=== PATIENT | male | born 1990 | race Caucasian/White ===

== ENCOUNTER 2019-10-19 19:39 | Emergency (ER) | payer SELFPAY ==
--- NOTE | 2019-10-19 21:07 | EDM.PDOC ---
ED HPI GENERAL MEDICAL PROBLEM - General Chief Complaint: Fever Stated Complaint: FEVER/CHILLS, STIFF NECK,BODY ACHES Time Seen by Provider: 10/19/19 20:31 Source of Information: Reports: Patient History Limitations: Reports: No Limitations - History of Present Illness INITIAL COMMENTS - FREE TEXT/NARRATIVE: chief complaint: sore throat and neck This is a 29 year old male who is generally healthy, reports for the past 4 days has been sick with sore throat, fever, body ache. reports and children are not sick. Immunizations are up to date, last flu shot 4 years ago, didn't get one this year Onset: Gradual Onset Date: 10/16/19 Duration: Day(s):, Getting Worse Location: Reports: Neck, Generalized Quality: Reports: Ache, Burning, Stabbing Improves with: Reports: None Worsens with: Reports: None Associated Symptoms: Reports: Fever/Chills, Other (bodyaches) Treatments LAUNDRY AID: Reports: Acetaminophen, NSAIDS throat Pain Score (Numeric/FACES): 4 - Related Data Allergies Allergy/AdvReac Type Severity Reaction Status Date / Time No Known Allergies Allergy Verified 10/19/19 20:22 Home Meds: Home Meds NK [No Known Home Meds] 08/20/18 [History] Past Medical History - Past Health History Medical/Surgical History: Denies Medical/Surgical History Social & Family History - Family History Family Medical History: Noncontributory - Caffeine Use Caffeine Use: Reports: Coffee - Recreational Drug Use Recreational Drug Use: No - Living Situation & Occupation Living situation: Reports: Occupation: Employed (lives with and Children.) ED ROS ENT - Review of Systems Review Of Systems: See Below Constitutional: Reports: Fever, Chills, Decreased Appetite HEENT: Reports: Throat Pain, Throat Swelling Respiratory: Reports: No Symptoms Cardiovascular: Reports: No Symptoms Endocrine: Reports: No Symptoms GI/Abdominal: Reports: No Symptoms Musculoskeletal: Reports: Neck Pain, Other (muscle aches and pains for the past 4 days) Skin: Reports: No Symptoms Neurological: Reports: No Symptoms Psychiatric: Reports: No Symptoms Hematologic/Lymphatic: Reports: No Symptoms Immunologic: Reports: No Symptoms ED EXAM, ENT - Physical Exam Exam: See Below Exam Limited By: No Limitations General Appearance: Alert, WD/WN, Mild Distress Eye Exam: Bilateral Eye: Normal Inspection Ears: Normal External Exam, Normal Canal, Hearing Grossly Normal, Normal TMs Nose: Clear Rhinorrhea, Injected Turbinates Mouth/Throat: Normal Gums, Normal Lips, Normal Teeth, Tonsillar Erythema, Tonsillar Exudates, Tonsillar Swelling Head: Atraumatic, Normocephalic Neck: Normal Inspection, Supple, Full Range of Motion, Tender Lateral Respiratory/Chest: No Respiratory Distress, Lungs Clear, Normal Breath Sounds, No Accessory Muscle Use, Chest Non-Tender Cardiovascular: Normal Peripheral Pulses, Regular Rate, Rhythm, No Edema, No Murmur GI/Abdominal: Normal Bowel Sounds, Soft, Non-Tender Back: Normal Inspection, Full Range of Motion Extremities: Normal Inspection, Normal Range of Motion, No Pedal Edema Neurological: Alert, Oriented, CN II-XII Intact, Normal Cognition, Normal Gait, Normal Reflexes, No Motor/Sensory Deficits Psychiatric: Normal Affect, Normal Mood Skin: Warm, Dry, Intact, Normal Color, No Rash Lymphatic: No Adenopathy Course - Vital Signs Last Recorded V/S: Last Vital Signs Temp 38.1 C 10/19/19 20:32 Pulse 80 10/19/19 21:18 Resp 14 10/19/19 21:18 BP 120/80 10/19/19 21:18 Pulse Ox 98 10/19/19 21:18 - Orders/Labs/Meds Orders: Active Orders 24 hr Category Date Time Status CULTURE STREP A CONFIRMATION [] Stat Lab 10/19/19 20:39 Results STREP SCRN A RAPID W CULT CONF [] Stat Lab 10/19/19 20:39 Results Departure - Departure Time of Disposition: 21:00 Disposition: Home, Self-Care 01 Condition: Good Clinical Impression: Acute tonsillitis Qualifiers: Pharyngitis/tonsillitis etiology: unspecified etiology Qualified Code(s): J03.90 - Acute tonsillitis, unspecified - Discharge Information *PRESCRIPTION DRUG MONITORING PROGRAM REVIEWED*: Not Applicable *COPY OF PRESCRIPTION DRUG MONITORING REPORT IN PATIENT PAULA: Not Applicable Instructions: Tonsillitis, [id number] Referrals: PCP,None [Primary Care Provider] - Forms: ED Department Discharge, ED Return to Work/School Form Care Plan Goals: Acute Tonsillitis and cough -Zithromax 250mg; take 2 tabs today then 1 tab daily for 4 days -Robitussin AC; take 10 ml every 4 to 6 hours as needed for painful cough -rest -push fluids - no work until fever free for 24 hours, work slip given Return to ER if not improved or has worsen pain, fever, chills, nausea, vomiting , or has any concerns. Sepsis Event Note - Evaluation Sepsis Screening Result: No Definite Risk - Focused Exam Vital Signs: Vital Signs Temp Pulse Resp BP Pulse Ox 10/19/19 21:18 80 14 120/80 98 10/19/19 20:32 38.1 C 88 14 142/82 H 96 10/19/19 20:05 38.1 C 93 16 154/87 H 96 Date Exam was Performed: 10/19/19 Time Exam was Performed: 22:47 - Problem List & Annotations (1) Acute tonsillitis SNOMED Code(s): 57523309 Code(s): J03.90 - ACUTE TONSILLITIS, UNSPECIFIED Status: Acute Qualifiers: Pharyngitis/tonsillitis etiology: unspecified etiology Qualified Code(s): J03.90 - Acute tonsillitis, unspecified - Problem List Review Problem List Initiated/Reviewed/Updated: Yes - My Orders Last 24 Hours: My Active Orders 10/19/19 20:39 CULTURE STREP A CONFIRMATION [RM] Stat STREP SCRN A RAPID W CULT CONF [] Stat - Assessment/Plan Last 24 Hours: My Active Orders 10/19/19 20:39 CULTURE STREP A CONFIRMATION [RM] Stat STREP SCRN A RAPID W CULT CONF [] Stat Plan: Acute Tonsillitis and cough -Zithromax 250mg; take 2 tabs today then 1 tab daily for 4 days -Robitussin AC; take 10 ml every 4 to 6 hours as needed for painful cough -rest -push fluids - no work until fever free for 24 hours, work slip given Return to ER if not improved or has worsen pain, fever, chills, nausea, vomiting , or has any concerns.
== END 2019-10-19 21:21 | disposition home or self-care (01) ==
LOC: JP.ED 19:39
DX: J03.90 Acute tonsillitis, unspecified (principal)
CPT/HCPCS: 87081; 87804; 87804-59; 87880-QW; 99283

== ENCOUNTER 2021-06-05 20:54 | Emergency (ER) | payer MEDICAID ==
--- NOTE | 2021-06-05 22:11 | EDM.PDOC ---
ED HPI GENERAL MEDICAL PROBLEM - General Chief Complaint: Fever Stated Complaint: FEVER,BODY ACHES Time Seen by Provider: 06/05/21 20:59 Source of Information: Reports: Patient, RN History Limitations: Reports: No Limitations - History of Present Illness INITIAL COMMENTS - FREE TEXT/NARRATIVE: chief complaint: fever, chills, neck pain- similar to the ear infection 3 weeks ago. This is a 31 year old Male presents to the ER for evaluation of symptoms. He reports headache, neck pain, intermittent ear pain. This is similar to ear infection about 3 weeks ago, this was treated with antibiotics (unknown) then ear drops. Lives with and 3 Children all well Not vaccinated for Covid-19, denies any exposure to Covid-19 Onset: Today Duration: Hour(s):, Getting Worse Location: Reports: Generalized Quality: Reports: Same as Previous Episode (ear infection 3 weeks ago) Severity: Mild Improves with: Reports: None Worsens with: Reports: None Associated Symptoms: Reports: Fever/Chills, Headaches, Other (intermittent ear pain) body aches Pain Score (Numeric/FACES): 6 - Related Data Allergies Allergy/AdvReac Type Severity Reaction Status Date / Time No Known Allergies Allergy Verified 06/05/21 21:39 Home Meds: Home Meds NK [No Known Home Meds] 08/20/18 [History] Past Medical History - Past Health History Medical/Surgical History: Denies Medical/Surgical History HEENT History: Reports: Impaired Vision, Other (See Below) Other HEENT History: contacts Musculoskeletal History: Reports: Fracture, Other (See Below) Other Musculoskeletal History: right arm fx - Infectious Disease History Infectious Disease History: Reports: Chicken Pox Social & Family History - Family History Family Medical History: No Pertinent Family History - Tobacco Use Tobacco Use Status *Q: Never Tobacco User - Caffeine Use Caffeine Use: Reports: Coffee - Recreational Drug Use Recreational Drug Use: No - Living Situation & Occupation Living situation: Reports: (lives with and 3 Children in [place], [place].) Occupation: Employed (lives with and Children.) ED ROS ENT - Review of Systems Review Of Systems: See Below Constitutional: Reports: Fever, Chills, Malaise HEENT: Reports: Ear Pain, Throat Pain, Other (swollen glands in neck) Respiratory: Reports: No Symptoms Cardiovascular: Reports: No Symptoms Endocrine: Reports: No Symptoms GI/Abdominal: Reports: No Symptoms : Reports: No Symptoms Musculoskeletal: Reports: Neck Pain Skin: Reports: No Symptoms Neurological: Reports: No Symptoms Psychiatric: Reports: No Symptoms Hematologic/Lymphatic: Reports: No Symptoms Immunologic: Reports: No Symptoms ED EXAM, ENT - Physical Exam Exam: See Below Exam Limited By: No Limitations General Appearance: Alert, WD/WN, No Apparent Distress, Other (neat and well groomed, pleasant and polite) Eye Exam: Bilateral Eye: Normal Inspection, PERRL Ears: Normal External Exam, Normal Canal, Hearing Grossly Normal, TM Bulging, TM Dullness, TM Erythema Nose: Normal Inspection, Normal Mucousa Mouth/Throat: Normal Gums, Normal Lips, Normal Teeth, Tonsillar Erythema, Tonsillar Exudates (white discharge noted to tonsils.) Head: Atraumatic, Normocephalic Neck: Normal Inspection, Supple, Lymphadenopathy (R), Lymphadenopathy (L) Respiratory/Chest: No Respiratory Distress, Lungs Clear, Normal Breath Sounds, No Accessory Muscle Use, Chest Non-Tender Cardiovascular: Normal Peripheral Pulses, Regular Rate, Rhythm, No Edema, No Gallop, No JVD, No Murmur, No Rub GI/Abdominal: Normal Bowel Sounds, Soft, Non-Tender, No Organomegaly, No Distention, No Abnormal Bruit, No Mass (Male) Exam: Deferred Rectal (Males) Exam: Deferred Back: Normal Inspection, Full Range of Motion Extremities: Normal Inspection, Normal Range of Motion, Non-Tender, No Pedal Edema, Normal Capillary Refill Neurological: Alert, Oriented, CN II-XII Intact, Normal Cognition, Normal Gait, Normal Reflexes, No Motor/Sensory Deficits Psychiatric: Normal Affect, Normal Mood Skin: Warm, Dry, Intact, Normal Color, No Rash Lymphatic: Adenopathy (cervical) Course - Vital Signs Last Recorded V/S: Last Vital Signs Temp 97.8 F 06/05/21 21:40 Pulse 94 06/05/21 21:40 Resp 16 06/05/21 21:40 BP 122/89 06/05/21 21:40 Pulse Ox 95 06/05/21 21:40 - Orders/Labs/Meds Orders: Active Orders 24 hr Category Date Time Status CULTURE STREP A CONFIRMATION [RM] Stat Lab 06/05/21 21:39 Results STREP SCRN A RAPID W CULT CONF [RM] Stat Lab 06/05/21 21:39 Results - Re-Assessments/Exams Free Text/Narrative Re-Assessment/Exam: 06/05/21 22:13 rapid strep negative- throat culture pending will treat for recurrent ear infection Mr. Borges agrees with plan of care. Departure - Departure Time of Disposition: 22:14 Disposition: Home, Self-Care 01 Condition: Good Clinical Impression: Otitis media Acute tonsillitis Qualifiers: Pharyngitis/tonsillitis etiology: unspecified etiology Qualified Code(s): J03.90 - Acute tonsillitis, unspecified - Discharge Information *PRESCRIPTION DRUG MONITORING PROGRAM REVIEWED*: Not Applicable *COPY OF PRESCRIPTION DRUG MONITORING REPORT IN PATIENT PAULA: Not Applicable Instructions: Tonsillitis, [id number], Otitis Media, Adult, [id number] Referrals: PCP,None [Primary Care Provider] - Care Plan Goals: Ear Infection with Tonsillitis -rapid strep test is negative- throat culture is pending -start today Zithromax 250mg tablet take two tablets tonight, then one daily til gone -Tylenol #3 (pain medication) take one tablet at bedtime and every 4 to 6 hours as need for pain -Take over the counter Motrin and Tylenol as needed for minor pain -follow with [facility] in 10 days to recheck ears Return to ER for any increased pain,fever, chills, nausea, vomiting, rash or not improved Sepsis Event Note (ED) - Evaluation Sepsis Screening Result: No Definite Risk - Focused Exam Vital Signs: Vital Signs Temp Pulse Resp BP Pulse Ox 06/05/21 21:40 97.8 F 94 16 122/89 95 06/05/21 21:12 97.8 F 94 16 122/89 95 - Problem List & Annotations (1) Otitis media SNOMED Code(s): 97999880 Code(s): H66.90 - OTITIS MEDIA, UNSPECIFIED, UNSPECIFIED EAR Status: Acute Priority: High Current Visit: Yes Qualifiers: Otitis media type: suppurative Chronicity: acute Laterality: bilateral Recurrence: recurrent Spontaneous tympanic membrane rupture: without spontaneous rupture Qualified Code(s): H66.006 - Acute suppurative otitis media without spontaneous rupture of ear drum, recurrent, bilateral (2) Acute tonsillitis SNOMED Code(s): 41583496 Code(s): J03.90 - ACUTE TONSILLITIS, UNSPECIFIED Status: Acute Priority: High Current Visit: Yes Qualifiers: Pharyngitis/tonsillitis etiology: unspecified etiology Qualified Code(s): J03.90 - Acute tonsillitis, unspecified - Problem List Review Problem List Initiated/Reviewed/Updated: Yes - My Orders Last 24 Hours: My Active Orders 06/05/21 21:39 CULTURE STREP A CONFIRMATION [RM] Stat STREP SCRN A RAPID W CULT CONF [RM] Stat - Assessment/Plan Last 24 Hours: My Active Orders 06/05/21 21:39 CULTURE STREP A CONFIRMATION [RM] Stat STREP SCRN A RAPID W CULT CONF [RM] Stat Plan: Ear Infection with Tonsillitis -rapid strep test is negative- throat culture is pending -start today Zithromax 250mg tablet take two tablets tonight, then one daily til gone -Tylenol #3 (pain medication) take one tablet at bedtime and every 4 to 6 hours as need for pain -Take over the counter Motrin and Tylenol as needed for minor pain -follow with [facility] in 10 days to recheck ears Return to ER for any increased pain,fever, chills, nausea, vomiting, rash or not improved
== END 2021-06-05 22:27 | disposition home or self-care (01) ==
LOC: JP.ED 20:54
DX: J03.90 Acute tonsillitis, unspecified (principal); H66.006 Acute suppurative otitis media without spontaneous rupture of ear drum, recurrent, bilateral
CPT/HCPCS: 87081; 87880-QW; 99283

== ENCOUNTER 2021-07-04 20:05 | Emergency (ER) | payer MEDICAID ==
[2021-07-04] MEDS ORDERED: Acetaminophen/oxyCODONE 325-5 MG Tab PO STA (20:21)
[2021-07-04] MEDS ORDERED: Ibuprofen 600 MG Tab PO ONE (20:22)
--- NOTE | 2021-07-04 20:26 | EDM.PDOC ---
ED HPI GENERAL MEDICAL PROBLEM - General Chief Complaint: General Stated Complaint: FELL OFF JONES/STUNG Time Seen by Provider: 07/04/21 20:15 Source of Information: Reports: Patient, Old Records, RN History Limitations: Reports: No Limitations - History of Present Illness INITIAL COMMENTS - FREE TEXT/NARRATIVE: 31 yo male fell climbing a fence to escape some bees after being stung once in the L mandaen. Now has L lateral chest wall pain from the fall. Hurts to breath. No tx prior to arrival. Onset: Today, Sudden Onset Date: 07/04/21 Duration: Minutes:, Constant Location: Reports: Chest Quality: Reports: Sharp, Stabbing Severity: Moderate Improves with: Reports: Rest Worsens with: Reports: Movement Context: Reports: Trauma Associated Symptoms: Reports: No Other Symptoms Treatments SUPPORT ASSOCIATE: Reports: Other (see below) (none) Left Upper Chest Pain Score (Numeric/FACES): 8 - Related Data Allergies Allergy/AdvReac Type Severity Reaction Status Date / Time No Known Allergies Allergy Verified 06/05/21 21:39 Home Meds: Home Meds NK [No Known Home Meds] 08/20/18 [History] Past Medical History - Past Health History Medical/Surgical History: Denies Medical/Surgical History HEENT History: Reports: Impaired Vision, Other (See Below) Other HEENT History: contacts Musculoskeletal History: Reports: Fracture, Other (See Below) Other Musculoskeletal History: right arm fx - Infectious Disease History Infectious Disease History: Reports: Chicken Pox Social & Family History - Family History Family Medical History: No Pertinent Family History - Tobacco Use Tobacco Use Status *Q: Never Tobacco User - Caffeine Use Caffeine Use: Reports: None - Recreational Drug Use Recreational Drug Use: No - Living Situation & Occupation Living situation: Reports: (lives with and 3 Children in [place], [place].) Occupation: Employed (lives with and Children.) ED ROS GENERAL - Review of Systems Review Of Systems: See Below Constitutional: Reports: No Symptoms HEENT: Reports: No Symptoms Respiratory: Reports: Pleuritic Chest Pain. Denies: Shortness of Breath Cardiovascular: Reports: No Symptoms GI/Abdominal: Reports: No Symptoms Skin: Reports: No Symptoms Neurological: Reports: No Symptoms ED EXAM, GENERAL - Physical Exam Exam: See Below Exam Limited By: No Limitations General Appearance: Alert, WD/WN, No Apparent Distress Eye Exam: Bilateral Eye: Normal Inspection Ears: Normal External Exam, Normal Canal, Hearing Grossly Normal Ear Exam: Bilateral Ear: Auricle Normal, Canal Normal Nose: Normal Inspection, No Blood Throat/Mouth: Normal Inspection, Normal Lips, Normal Oropharynx, Normal Voice, No Airway Compromise Head: Atraumatic, Normocephalic Neck: Normal Inspection Respiratory/Chest: No Respiratory Distress, Lungs Clear, Normal Breath Sounds, No Accessory Muscle Use. No: Chest Non-Tender (rib pain L lateral chest) Cardiovascular: Regular Rate, Rhythm, No Edema Extremities: Normal Inspection Neurological: Alert, Oriented, CN II-XII Intact, Normal Cognition, No Motor/Sensory Deficits Psychiatric: Normal Affect, Normal Mood Skin Exam: Warm, Dry, Intact, Normal Color, No Rash Course - Vital Signs Last Recorded V/S: Last Vital Signs Temp 36.4 C 07/04/21 20:18 Pulse 81 07/04/21 20:18 Resp 16 07/04/21 20:18 BP 134/85 07/04/21 20:18 Pulse Ox 96 07/04/21 20:18 - Orders/Labs/Meds Orders: Active Orders 24 hr Category Date Time Status Ribs 3V wo Chest Lt [CR] Stat Exams 07/04/21 20:22 Ordered UA W/MICROSCOPIC [URIN] Stat Lab 07/04/21 20:24 Ordered Meds: Medications Discontinued Medications Generic Name Dose Route Start Last Admin Trade Name Morgan PRN Reason Stop Dose Admin Ibuprofen 600 mg 07/04/21 20:22 07/04/21 20:26 Ibuprofen 600 Mg Tab PO 07/04/21 20:23 600 mg ONETIME ONE Administration Oxycodone/Acetaminophen 1 tab 07/04/21 20:21 07/04/21 20:26 Acetaminophen/Oxycodone 325-5 Mg Tab PO 07/04/21 20:22 1 tab ONETIME STA Administration - Radiology Interpretation Free Text/Narrative:: Rib x-rays-neg Departure - Departure Time of Disposition: 20:50 Disposition: Home, Self-Care 01 Condition: Fair Clinical Impression: Rib pain on left side - Discharge Information *PRESCRIPTION DRUG MONITORING PROGRAM REVIEWED*: No *COPY OF PRESCRIPTION DRUG MONITORING REPORT IN PATIENT PAULA: No Instructions: Chest Wall Pain, [id number] Referrals: PCP,None [Primary Care Provider] - Forms: ED Department Discharge Additional Instructions: Take ibuprofen 600 mg every 6 hrs with food for pain relief. Add either acetaminophen 1000 mg every 6 hrs OR [place] for added pain relief. Recheck with your doctor within the week, call for an appt. Sepsis Event Note (ED) - Evaluation Sepsis Screening Result: No Definite Risk - Focused Exam Vital Signs: Vital Signs Temp Pulse Resp BP Pulse Ox 07/04/21 20:18 36.4 C 81 16 134/85 96 - My Orders Last 24 Hours: My Active Orders 07/04/21 20:22 Ribs 3V wo Chest Lt [CR] Stat 07/04/21 20:24 UA W/MICROSCOPIC [URIN] Stat - Assessment/Plan Last 24 Hours: My Active Orders 07/04/21 20:22 Ribs 3V wo Chest Lt [CR] Stat 07/04/21 20:24 UA W/MICROSCOPIC [URIN] Stat
--- NOTE | 2021-07-09 09:15 | CR ---
Ribs 3V wo Chest Lt CLINICAL HISTORY: Fall, left chest pain FINDINGS: There is no acute fracture within the ribs. No destructive changes are seen. There is no focal pleural thickening or obvious effusion. IMPRESSION: Negative left ribs.
== END 2021-07-04 21:02 | disposition home or self-care (01) ==
LOC: JP.ED 20:05
DX: R07.81 Pleurodynia (principal)
CPT/HCPCS: 71101; 99283; A9270

== ENCOUNTER 2021-07-12 19:37 | Emergency (ER) | payer MEDICAID ==
--- NOTE | 2021-07-12 20:24 | EDM.PDOC ---
ED HPI GENERAL MEDICAL PROBLEM - General Chief Complaint: Back Pain or Injury Stated Complaint: FELL A WEEK AGO,LT SIDE BODY PAIN Time Seen by Provider: 07/12/21 20:24 Source of Information: Reports: Patient, RN Notes Reviewed History Limitations: Reports: No Limitations - History of Present Illness INITIAL COMMENTS - FREE TEXT/NARRATIVE: Pain that has worsened since yesterday to the left sternum, chest, left anterior and posterior ribs. He reports he fell forward over a gait onto the ground while being pulled by a horse 7 days ago. He denies LOC. He states his pain became much worse up to 9/10 today to the left front and back of his chest. He states he cannot get comfortable sitting, laying or walking. He states he has been taking ibuprofen 600mg by mouth for his pain. When he takes ibuprofen for pain, the pain goes down to 4/10. He denies SOB, cough, difficulty breathing, fever, chills, nausea, vomiting, change in bowel/bladder, blood in urine, bloody stools or any other concerns. Last PO food and water at 1800 today. He was evaluated after his fall, had x-ray of chest/ribs which was negative for acute findings 07/04/2021. Left Back Pain Score (Numeric/FACES): 7 - Related Data Allergies Allergy/AdvReac Type Severity Reaction Status Date / Time No Known Allergies Allergy Verified 07/12/21 20:12 Home Meds: Home Meds NK [No Known Home Meds] 08/20/18 [History] Past Medical History - Past Health History Medical/Surgical History: Denies Medical/Surgical History HEENT History: Reports: Impaired Vision, Other (See Below) Other HEENT History: contacts Musculoskeletal History: Reports: Fracture, Other (See Below) Other Musculoskeletal History: right arm fx - Infectious Disease History Infectious Disease History: Reports: Chicken Pox Social & Family History - Family History Family Medical History: No Pertinent Family History - Tobacco Use Tobacco Use Status *Q: Former Tobacco User Used Tobacco, but Quit: Yes Month/Year Tobacco Last Used: 10/2020 - Caffeine Use Caffeine Use: Reports: Tea - Recreational Drug Use Recreational Drug Use: No - Living Situation & Occupation Living situation: Reports: (lives with and 3 Children in [place], [place].) Occupation: Employed (lives with and Children.) ED ROS GENERAL - Review of Systems Review Of Systems: See Below Constitutional: Reports: No Symptoms HEENT: Reports: No Symptoms Respiratory: Reports: Other (pain to front and back of left side or chest with rest and activity. ). Denies: Shortness of Breath, Wheezing, Cough, Sputum, Hemoptysis Cardiovascular: Reports: Chest Pain (with deep breathing to left front/back of chest and with movement.). Denies: Blood Pressure Problem, Claudication, Dyspnea on Exertion, Edema, Lightheadedness, Orthopnea, Palpitations, PND, Syncope Endocrine: Reports: No Symptoms GI/Abdominal: Denies: Abdominal Pain, Black Stool, Bloody Stool, Constipation, Diarrhea, Distension, Flatus, Hematemesis, Hematochezia, Melena, Nausea, Stool Incontinence, Vomiting : Reports: No Symptoms Musculoskeletal: Reports: Muscle Pain (left upper back, ), Muscle Stiffness (left upper back). Denies: Neck Pain, Back Pain Skin: Reports: No Symptoms Neurological: Reports: No Symptoms Psychiatric: Reports: No Symptoms Hematologic/Lymphatic: Reports: No Symptoms Immunologic: Reports: No Symptoms ED EXAM, UPPER BACK/NECK PAIN - Physical Exam Exam: See Below Exam Limited By: No Limitations General Appearance: Alert, WD/WN, Mild Distress (Offered pain medication, patient declined any narcotic. Acetaminophen ordered. ) Eye Exam: Bilateral Eye: EOMI, Normal Inspection, PERRL Ears Exam: Normal External Exam, Normal Canal, Hearing Grossly Normal, Normal TMs Nose Exam: Normal Inspection, Normal Mucousa, No Blood Throat/Mouth Exam: Normal Inspection, Normal Lips, Normal Teeth, Normal Gums, Normal Oropharynx, Normal Voice, No Airway Compromise Head Exam: Atraumatic, Normocephalic Neck Exam: Non-Tender, Full Range of Motion, Normal Alignment, Normal Inspection. No: Muscle Spasm, Paraspinous Muscle Tender, Spinous Processes Tender, Stiff Neck Nexus Criteria: No: Posterior, Midline Cervical Tenderness, Evidence of Intoxication, Altered Level of Consciousness, Focal Neurological Deficit, Painful Distraction Injuries Cardiovascular/Respiratory: Regular Rate, Rhythm, No M/R/G, Normal Peripheral Pulses, No Respiratory Distress, Other (pain reproducable with palpation to sternum/xyphoid process, along anterior/lateral lower ribs with palption). No: Tachycardia, Murmur, Rales, Rhonchi, Accessory Muscle uUe, Wheezing GI/Abdominal: Normal Bowel Sounds, Soft, Non-Tender, No Organomegaly, No Distention, No Mass. No: Guarding, Rigid, Rebound, Tender Back Exam: Full Range of Motion, Paraspinal Tenderness (to left thoracic). No: CVA Tenderness (R), CVA Tenderness (L), Vertebral Tenderness Extremities: Normal Inspection, Normal Range of Motion, Non-Tender, No Pedal Edema, Normal Capillary Refill Neurologic: No Motor/Sensory Deficits, Alert, Normal Mood/Affect, Oriented x 3 Psychiatric: Normal Affect, Normal Mood Skin Exam: Normal Color, Warm/Dry Lymphatic: No Adenopathy Course - Vital Signs Last Recorded V/S: Last Vital Signs Temp 36.4 C 07/12/21 20:13 Pulse 72 07/12/21 20:13 Resp 16 07/12/21 20:13 BP 147/79 H 07/12/21 20:13 Pulse Ox 96 07/12/21 20:13 - Orders/Labs/Meds Labs: Laboratory Tests 07/12/21 07/12/21 07/12/21 Range/Units 20:46 20:56 20:56 WBC 7.9 (4.5-11.0) K/uL RBC 4.69 (4.30-5.90) M/uL Hgb 13.3 (12.0-15.0) g/dL Hct 40.1 (40.0-54.0) % MCV 86 (80-98) fL MCH 28 (27-31) pg MCHC 33 (32-36) % Plt Count 259 (150-400) K/uL Neut % (Auto) 54.6 (36-66) % Lymph % (Auto) 31.4 (24-44) % [place] % (Auto) 10.6 H (2-6) % Eos % (Auto) 3.0 (2-4) % Baso % (Auto) 0.4 (0-1) % Sodium 140 (140-148) mmol/L Potassium 3.6 (3.6-5.2) mmol/L Chloride 103 (100-108) mmol/L Carbon Dioxide 29 (21-32) mmol/L Anion Gap 8.1 (5.0-14.0) mmol/L BUN 21 H (7-18) mg/dL Creatinine 1.1 (0.8-1.3) mg/dL Est Cr Clr Drug Dosing 117.27 mL/min Estimated GFR (MDRD) > 60 (>60) Glucose 106 (74-106) mg/dL Calcium 9.2 (8.5-10.1) mg/dL Total Bilirubin 0.3 (0.2-1.0) mg/dL AST 12 L (15-37) U/L ALT 35 (12-78) U/L Alkaline Phosphatase 67 (46-116) U/L Total Protein 7.1 (6.4-8.2) g/dL Albumin 3.8 (3.4-5.0) g/dL Globulin 3.3 (2.3-3.5) g/dL Albumin/Globulin Ratio 1.2 (1.2-2.2) Urine Color Yellow (YELLOW) Urine Appearance Clear (CLEAR) Urine pH 6.0 (5.0-8.0) Ur Specific [place] >= 1.030 (1.008-1.030) Urine Protein Negative (NEGATIVE) mg/dL Urine Glucose (UA) Negative (NEGATIVE) mg/dL Urine Ketones Negative (NEGATIVE) mg/dL Urine Occult Blood Trace-intact H (NEGATIVE) Urine Nitrite Negative (NEGATIVE) Urine Bilirubin Negative (NEGATIVE) Urine Urobilinogen 0.2 (0.2-1.0) EU/dL Ur Leukocyte Esterase Negative (NEGATIVE) Urine RBC 0-5 (0-5) Urine WBC 0-5 (0-5) Ur Epithelial Cells Not seen Amorphous Sediment Not seen Urine Bacteria Not seen Urine Mucus Not seen Patient lab work reviewed, no acute findings. Noted occult blood in urine with RBC 0-5, most likely myoglobin. Patient can recheck UA with primary in 7 to 14 days. Meds: Medications Discontinued Medications Generic Name Dose Route Start Last Admin Trade Name Freq PRN Reason Stop Dose Admin Acetaminophen 1,000 mg 07/12/21 20:46 07/12/21 20:50 Acetaminophen 500 Mg Tab PO 07/12/21 20:47 1,000 mg ONETIME ONE Administration Ketorolac Tromethamine 30 mg 07/12/21 22:42 07/12/21 22:55 Ketorolac 30 Mg/Ml Sdv IM 07/12/21 22:43 30 mg ONETIME ONE Administration - Radiology Interpretation Free Text/Narrative:: CT chest, abdomen, pelvis completed without IV contrast. Imaging shows acute fractures of the left anterior 5th, 6th, 7th ribs. 4mm nodule in the dome of the right middle lobe abutting the minor fissure. If high risk, optional follow up in 12 months. Patient and his notified of CT scan findings, all their questions were answered. Patient educated on signs of worsening, importance of use of IS, deep breathing and coughing. Patient verbalized understanding. - Re-Assessments/Exams Free Text/Narrative Re-Assessment/Exam: Patient provided ketorolac for pain after CT completed. Patient tolerated well. Departure - Departure Time of Disposition: 22:45 Disposition: Home, Self-Care 01 Condition: Good Clinical Impression: Fracture of three ribs on left side - Discharge Information *PRESCRIPTION DRUG MONITORING PROGRAM REVIEWED*: Yes *COPY OF PRESCRIPTION DRUG MONITORING REPORT IN PATIENT PAULA: Not Applicable Instructions: Rib Fracture, [id number] Referrals: Gabriel Medina NP [Primary Care Provider] - Forms: ED Department Discharge Additional Instructions: You have been evaluated and treated for left chest pain. CT of abdomen, chest and pelvis without IV contrast completed. CT showed anterior 5th,6th,7th rib fractures. CT also showed 4mm nodule to the dome of the right middle lobe abutting the minor fissure - have this rechecked with your primary provider in 12 months or when your provider states you should. No other abnormal findings noted. Keep hydrated by drinking plenty of water. Take ibuprofen 800mg (4 pills of the 200mg pills) for pain every 8 hours with food. For uncontrolled pain take hydrocodone 5/325mg one to two pills every 6 hours as needed for pain. instymed for #20 pills. Take docusate sodium one pill once or twice per day to prevent constipation. Avoid alcohol use with hydrocodone pain pills. Do not drive while taking hydrocodone. Take deep breaths, cough and deep breath every hour while awake to help prevent pneumonia. Use IS (incentive spirometer) 2 to 4 times every hour while awake to help prevent pneumonia. Follow up with your primary provider in 7 to 14 days for a recheck of urine and for any needs/concern. Return to the emergency room for any worsening, issues or concerns. Sepsis Event Note (ED) - Evaluation Sepsis Screening Result: No Definite Risk - Focused Exam Vital Signs: Vital Signs Temp Pulse Resp BP Pulse Ox 07/12/21 20:13 36.4 C 72 16 147/79 H 96 09/03/21 20:01 36.4 C 72 16 147/79 H 96 - Assessment/Plan Assessment:: Fracture of three ribs on left side Incidental finding right lung. Occult blood, RBC 0-5 UA, most likely myoglobin. Patient will follow up with primary for recheck, repeat UA. Take ibuprofen, hydrocodone as needed for pain. Deep breath and cough, use of IS to help prevent pneumonia. Return as needed. Plan: You have been evaluated and treated for left chest pain. CT of abdomen, chest and pelvis without IV contrast completed. CT showed anterior 5th,6th,7th rib fractures. CT also showed 4mm nodule to the dome of the right middle lobe abutting the minor fissure - have this rechecked with your primary provider in 12 months or when your provider states you should. No other abnormal findings noted. Keep hydrated by drinking plenty of water. Take ibuprofen 800mg (4 pills of the 200mg pills) for pain every 8 hours with food. For uncontrolled pain take hydrocodone 5/325mg one to two pills every 6 hours as needed for pain. instymed for #20 pills. Take docusate sodium one pill once or twice per day to prevent constipation. Avoid alcohol use with hydrocodone pain pills. Do not drive while taking hydrocodone. Take deep breaths, cough and deep breath every hour while awake to help prevent pneumonia. Use IS (incentive spirometer) 2 to 4 times every hour while awake to help prevent pneumonia. Follow up with your primary provider in 7 to 14 days for a recheck of urine and for any needs/concern. Return to the emergency room for any worsening, issues or concerns.
[2021-07-12] MEDS ORDERED: Acetaminophen 500 MG Tab PO ONE (20:46)
--- NOTE | 2021-07-12 22:08 | CRLCT ---
For Patients: As a result of the Century Cures Act, medical imaging exams and procedure reports are released immediately into your electronic medical record. You may view this report before your referring provider. If you have questions, please contact your health care provider. INDICATION: Left flank pain from fall 7 days ago while climbing over his horse gate and fall TECHNIQUE: CT chest, abdomen, and pelvis without i.v. contrast. Coronal and sagittal reformats were obtained. COMPARISON: None FINDINGS: CHEST: Cardiovascular: The heart has an unremarkable appearance and size. The pulmonary arteries are unremarkable in appearance. No sign of aneurysm seen in the thoracic aorta. The presence of aortic dissection cannot be evaluated without the use of intravenous contrast. Mediastinum: No mass or adenopathy seen. Lung: No pulmonary contusion, laceration or pneumothorax is seen. There is a 4 mm nodule in the dome of the right middle lobe abutting the minor fissure. Pleura and pericardium: No sign of pleural effusion seen. No significant pericardial effusion is present. Chest wall and axilla: No mass or adenopathy seen. Bone: Acute fractures of the left anterior 5th-7th ribs are noted. ABDOMEN/PELVIS: Liver: Unremarkable. Spleen: Unremarkable. Pancreas: Unremarkable. Gallbladder: Unremarkable. Kidney: Unremarkable. No kidney or ureteral stones or obstruction seen. Adrenal: Unremarkable. Bowel: Unremarkable. The appendix is normal in appearance and size. Small fat containing umbilical hernia is noted. Vascular: Unremarkable. Lymph: Mesenteric lymph nodes are present measuring up to 8 mm. Peritoneum: Unremarkable. No pneumoperitoneum is seen. No significant ascites is noted. Pelvis: Unremarkable. Soft tissue: Unremarkable. Bone: Unremarkable for age. No acute osseous injuries seen. IMPRESSIONS: 1. Acute fractures of the left anterior 5th-7th ribs are noted. 2. There is a 4 mm nodule in the dome of the right middle lobe abutting the minor fissure. If the patient has a high risk stratification, optional followup Chest CT in 12 months is advised in accordance with the 2017 Revised Fleischner Society Recommendations. Dictated by Rivera Bowman MD @ 07/12/2021 10:07:03 PM Please note that all CT scans at this facility use dose modulation, iterative reconstruction, and/or weight-based dosing when appropriate to reduce radiation dose to as low as reasonably achievable. Dictated by: Rivera Bowman MD @ 07/12/2021 22:07:06 (Electronically Signed)
[2021-07-12] MEDS ORDERED: Ketorolac 30 MG/ML SDV IM ONE (22:42)
== END 2021-07-12 23:29 | disposition home or self-care (01) ==
LOC: JP.ED 19:37
DX: S22.42XA Multiple fractures of ribs, left side, initial encounter for closed fracture (principal); Z87.891 Personal history of nicotine dependence; W17.89XA Other fall from one level to another, initial encounter
CPT/HCPCS: 36415; 71250; 74176; 80053; 81001; 85025; 96372; 99284; A9270; J1885

== ENCOUNTER 2025-05-21 20:03 | Emergency (ER) | payer MEDICAID, OTHER ==
[2025-05-21 20:39] LABS: BASOPHILS ABSOLUTE AUTO 0.02 K/uL (0.00-0.10); BASOPHILS PERCENT AUTO 0.3 % (0.1-1.3); EOSINOPHILS ABSOLUTE AUTO 0.13 K/uL (0.00-0.40); EOSINOPHILS PERCENT AUTO 2.1 % (0.0-5.4); IMMATURE GRAN ABSOLUTE AUTO 0.01 K/uL (0.00-0.23); IMMATURE GRAN PERCENT AUTO 0.2 % (0.0-0.7); LYMPHOCYTES ABSOLUTE AUTO 1.59 K/uL (0.8-3.3); LYMPHOCYTES PERCENT AUTO 25.9 % (11.4-47.7); MONOCYTES ABSOLUTE AUTO 0.71 K/uL (0.20-0.90); MONOCYTES PERCENT AUTO 11.5 % (3.3-12.6); NEUTROPHILS ABSOLUTE AUTO 3.69 K/uL (1.0-7.6); NEUTROPHILS PERCENT AUTO 60.0 % (40.0-78.1); PLATELET COUNT,PLT 202 K/uL (130-375); RED BLOOD CELL COUNT 4.51 M/uL (4.14-5.76); WHITE BLOOD CELL COUNT,WBC 6.2 K/uL (3.2-11.0)
[2025-05-21 21:02] LABS: A/G RATIO 1.3 (1.2-2.2); ALANINE AMINOTRANSFERASE,ALT 35 U/L (12-78); ASPARTATE AMNIOTRANSFERASE,AST 16 U/L (15-37); BILIRUBIN TOTAL 0.4 mg/dL (0.2-1.0); BLOOD UREA NITROGEN,BUN 18 mg/dL (7-18); CARBON DIOXIDE,CO2 28 mmol/L (21-32); CHLORIDE,CL 102 mmol/L (100-108); CREATININE 1.1 mg/dL (0.8-1.3); EST CRCL DRUG DOSING (CG) 115.88 mL/min; ESTIMATED GFR 89 mL/min (>60); GLUCOSE RANDOM 108 mg/dL (74-106); POTASSIUM,K 3.6 mmol/L (3.6-5.2); PROTEIN TOTAL,TP 6.8 g/dL (6.4-8.2); SODIUM,NA 139 mmol/L (140-148)
[2025-05-21 21:03] LABS: LACTIC ACID 0.8 mmol/L (0.4-2.0)
[2025-05-24 23:27] LABS: ANAPLASMA PHAGOCYTOPHILUM PCR Not Detected; BABESIA MICROTI BY PCR Not Detected; EHRLICHIA CHAFFEENSIS BY PCR Not Detected; EHRLICHIA EWINGII/CANIS BY PCR Not Detected; EHRLICHIA MURIS-LIKE BY PCR Not Detected
== END 2025-05-21 22:19 | disposition home or self-care (01) ==
LOC: JP.ED 20:03
DX: B02.9 Zoster without complications (principal)
CPT/HCPCS: 80053; 83605; 85025; 86140; 86618; 87468; 87469; 87484; 87798; 99283; A9270; 36415